=== PATIENT | female | born 1985 | race Caucasian/White ===

== ENCOUNTER 2021-11-21 23:45 | Emergency (ER) | payer OTHER ==
[~2021-11-21] VITALS: Ht 162.6 cm; Wt 59.0 kg
[~2021-11-21 23:45] MED LIST: BACTRIM DS TAB1 EACH PO; IBUPROFEN 800800 MG PO; NOHOMEMEDICATIONS; NORCO 5-325 TA1 EACH PO; PENICILLIN VK500 M1 PO; PHENERGAN 25 MG25 MG PO; VALIUM5 MG PO
[2021-11-21 23:54] VITALS: BP 141/52
[2021-11-22] MEDS ORDERED: MELOXICAM15 MG PO (02:33)
== END 2021-11-22 02:45 | disposition home or self-care (01) ==
LOC: ER 23:45
DX: S46.911A Strain of unspecified muscle, fascia and tendon at shoulder and upper arm level, right arm, initial encounter (principal); W01.0XXA Fall on same level from slipping, tripping and stumbling without subsequent striking against object, initial encounter; Y93.89 Activity, other specified; Y92.89 Other specified places as the place of occurrence of the external cause; Y99.8 Other external cause status